=== PATIENT | male | born 1995 ===

== ENCOUNTER 2018-06-10 11:49 | Inpatient (IN) | payer OTHER | END 2018-06-11 11:40 | LOC: PAS IN 11:49 → ORTHO 4S 19:00 | PROC: 0QSJ04Z Reposition Right Fibula with Internal Fixation Device, Open Approach (ICD-10-PCS; principal; 2018-06-10 16:06) | PROC: 0QSG04Z Reposition Right Tibia with Internal Fixation Device, Open Approach (ICD-10-PCS; 2018-06-10 16:06) | DX: S82.91XA Unspecified fracture of right lower leg, initial encounter for closed fracture (principal); S82.441A Displaced spiral fracture of shaft of right fibula, initial encounter for closed fracture ==